=== PATIENT | male | born 1940 | race Caucasian/White ===

== ENCOUNTER → 2016-11-02 | Outpatient (CLI) | payer OTHER, BC ==
[~2016-11-02] MED LIST: ANTIVERT25 MG PO; ASPIRIN325 PO; ATENOLOL 100MG100 M2 PO; B12INJ SUBQ; BENICAR HCT 401 EACH PO; CENTRUM SILVER1 EAC2 PO; CIPRO500 MG PO; CITALOPRAM HBR40 MG PO; COUMADIN 5 MG TA5 M1 PO; ENOXAPARIN150 MG/11 SUBQ; FISH OIL 1,0001 EAC5 PO; FISH OIL 1,001000 M2 PO; FLOMAX0.4 MG PO; NEXIUM40 MG PO; OMEPRAZOLE40 MG PO; REMERON15 MG PO; TYLENOL325 MG PO; ZOCOR40 MG PO
== END ==
LOC: RAD 09:46
DX: R07.9 Chest pain, unspecified (principal); R06.02 Shortness of breath

== ENCOUNTER → 2016-11-19 | Outpatient (CLI) | payer OTHER, BC | LOC: CAT 11:04 | DX: J96.11 Chronic respiratory failure with hypoxia (principal); R06.02 Shortness of breath; R59.1 Generalized enlarged lymph nodes ==

== ENCOUNTER → 2017-03-15 | Outpatient (CLI) | payer OTHER, BC | LOC: PUL 09:26 → CAT 10:02 → EDSTATUS 13:01 | DX: J84.9 Interstitial pulmonary disease, unspecified (principal); J43.8 Other emphysema ==

== ENCOUNTER → 2017-04-26 | Outpatient (CLI) | payer OTHER, BC ==
--- NOTE | ~2017-04-26 | O ---
[facility] [place] [address] OPERATIVE REPORT Name: CLARISSA MARTINEZ Jackelyn Room #: [facility]#: [id number] Admission: 04/26/17 Attend Phys: Cameron Heath MD Discharge: Date of : 42 Report #: [id number] THIS REPORT FOR: //name// CC: CIPRIANO Heath DATE OF SERVICE: 04/26/2017 CLINICAL HISTORY: A 77-year-old white male with interstitial lung disease. A bronchoscopy was performed for bronchoalveolar lavage. DESCRIPTION OF PROCEDURE: Following obtaining consent, and risks and benefits been explained to the patient which include infection, bleeding and pneumothorax, procedure was performed in the bronchoscopy suite. The patient was given aerosolized lidocaine at 4%. Topical lidocaine at 2% and 1% were used for the upper airways. He was also given total of 3 mg of Versed, 100 mcg of fentanyl for sedation. A flexible fiberoptic bronchoscope was then introduced to the left naris without difficulty. The epiglottis was normal. Vocal cords were normal. Trachea showed mild tracheomalacia. Otherwise, mucosa was normal. Nayana was normal. Right main stem bronchus, right upper lobe, right middle lobe and right lower lobe were unremarkable. Left main stem bronchus, left upper lobe and left lower lobe were unremarkable. Mild clear secretions were seen in both airways. Bronchoalveolar lavage was performed at the proximal anterior segment of the left lower lobe. Three aliquots of 20 mL of normal saline was used. We had approximately 20 mL in return. The patient tolerated the procedure well, no complications. His saturation did decrease following the bronchial lavage. O2 has been increased with saturation improving to 93%. The bronchoalveolar lavage specimen will be sent for microbiologic and cytologic evaluation. The patient will be followed in the office in approximately 1 on 2 weeks. The findings were discussed with the patient's significant other. <ELECTRONICALLY SIGNED> By: Cameron Heath MD 04/28/17 1233 0900 0947 Cameron Heath MD /nt
--- NOTE | ~2017-04-26 | CNG ---
[facility] [place] [address] CYTO-NONGYN REPORT PROCEDURE Name: CLARISSA VILLALPANDO Room #: REG [facility] MichelPiter#: [id number] Admission: 04/26/17 Date of : 42 Discharge: Report #: [id number] Path Case #: [id number] CYTOPATHOLOGY REPORT COLLECTION DATE: 04/26/2017 RECEIVED DATE: 04/26/2017 SUBMITTING PHYS: Dr. Cameron Heath OTHER PHYS: Dr.Mark Amado CLINICAL HISTORY: Abnormal CT. SPECIMEN(S) RECEIVED: A.Bronchoalveolar lavage, LLL * * * * * * * * * * * * FINAL DIAGNOSIS: A. Bronchoalveolar lavage, LLL: - No malignant epithelial cells identified. - Bronchial epithelial cells and abundant alveolar macrophages present amongst acute and chronic inflammatory cells and multinucleated giant cell histiocytes with background mucoid debris. PATHOLOGIST: Amairani Polk M.D. REPORT ELECTRONICALLY SIGNED BY: Amairani Polk M.D. DATE/TIME: 04/27/2017 11:35 * * * * * * * * * * * * GROSS PATHOLOGY: A. Bronchoalveolar lavage, LLL: The specimen is submitted unfixed, labeled "Clarissa Villalpando". Received by the Cytology Department is 15 mL of cloudy fluid. One ThinPrep slide was prepared. (clt 04.26.2017) MACHINE SWEEPER BRUSH MAKER(S): RIA Singh([facility]) INITIAL CPT CODE(S): A; 66495 Professional services performed by [facility] at [facility] [address], [place] [address] Technical services performed by [facility] at [address] [place] [address], [facility] [address], [place] [address]. CC: [place] [facility] [address] [place] [address], [facility] [address] [place] [address] CYTO-NONGYN REPORT PROCEDURE Name: CLARISSA VILLALPANDO Room #: REG MAYA Rosales#: [id number] Admission: 04/26/17 Date of : 42 Discharge: Report #: [id number] Path Case #: [id number] PHONE: [phone] DIRECTOR: Benedicto Cortez M.D. * * * END OF REPORT * * *
== END ==
LOC: CATH 06:48
DX: J84.9 Interstitial pulmonary disease, unspecified (principal)

== ENCOUNTER → 2017-10-31 | Outpatient (CLI) | payer OTHER ==
[~2017-10-31] MED LIST changes: +AVALIDE 300-121 EACH PO; +MYCOPHENOLATE500 MG PO
== END ==
LOC: RAD 10:34 → LAB 10:34
DX: J84.9 Interstitial pulmonary disease, unspecified (principal); I26.99 Other pulmonary embolism without acute cor pulmonale

== ENCOUNTER 2017-11-30 17:25 | Emergency (ER) | payer OTHER ==
[~2017-11-30] VITALS: Ht 180.3 cm; Wt 111.1 kg
--- NOTE | ~2017-11-30 | EKG ---
[address] [address] ELECTROCARDIOGRAM REPORT Name: CLARISSA MARTINEZ [id number] Admission: 11/30/17 Attend Phys: Discharge: 11/30/17 Date of : 42 Report #: [id number] THIS REPORT FOR: //name// [facility] ED Test Date: 2017-11-30 Test Time: 17:46:56 Pat Name: CLARISSA PACHECOER Department: Room: Gender: M Histologist: GRAZYNA : 1940 Requested By: Janette Lopez Order Number: [id number] MD: Fausto Matias Measurements Intervals [place] Rate: 90 P: 4 [place]: 276 QRS: 5 QRSD: 99 T: 19 QT: 356 QTc: 436 Interpretive Statements Sinus rhythm Prolonged [place] interval Compared to ECG 06/04/2016 19:42:03 Electronically Signed On 12-01-2017 8:07:10 CDT by Fausto Matias [email or web address] <ELECTRONICALLY SIGNED> By: Fausto Matias MD 12/01/17 0807 1746 174 Fausto Matias MD /NELSON
[~2017-11-30 17:25] MED LIST changes: -AVALIDE 300-121 EACH PO; -MYCOPHENOLATE500 MG PO
[2017-11-30 17:53] LABS: HEMATOCRIT 49.3 % (42.0-52.0); HEMOGLOBIN 16.3 gm/dL (14.0-18.0); MCH 24.6 pg (26.0-34.0); MCV 74.5 fL (80.0-100.0); PLATELET COUNT 493 thou/uL (150-400); RBC 6.62 mil/uL (4.50-6.00); RDW 18.7 % (10.5-14.5); WBC 14.3 thou/uL (4.0-11.0)
[2017-11-30 17:58] LABS: ANION GAP 11 mmol/L (7-16); BUN 9 mg/dL (7-18); CALCIUM 9.2 mg/dL (8.5-10.1); CHLORIDE 91 mmol/L (98-107); CO2 25 mmol/L (21-32); CREATININE 1.3 mg/dL (0.7-1.3); GLUCOSE 96 mg/dL (74-106); POTASSIUM 3.4 mmol/L (3.5-5.1); SODIUM 127 mmol/L (136-145)
[2017-11-30 18:05] LABS: INR 1.3; PROTIME 13.7 Seconds (9.3-11.4)
[2017-11-30 18:06] LABS: ALBUMIN 4.4 g/dL (3.4-5.0); SGOT 25 U/L (15-37); SGPT 36 U/L (30-65); TOTAL PROTEIN 8.1 g/dL (6.4-8.2); TROPONIN-I < 0.04 ng/mL (<0.06)
[2017-11-30 18:31] LABS: URINE BILIRUBIN NEGATIVE (Negative); URINE BLOOD NEGATIVE (Negative); URINE CLARITY CLEAR; URINE COLOR YELLOW; URINE GLUCOSE-RANDOM* NEGATIVE (Negative); URINE KETONES TRACE (Negative); URINE LEUKOCYTES NEGATIVE (Negative); URINE NITRITE NEGATIVE (Negative); URINE PROTEIN (DIPSTICK) NEGATIVE (Negative); URINE UROBILINOGEN 0.2 E.U./dl (0.2-1.0)
[2017-11-30 18:40] LABS: ABSOLUTE NEUTROPHILS 11.9 thou/uL (1.4-8.2); METAMYELOCYTES 3 %
[2017-11-30 18:41] LABS: ANISOCYTOSIS 2+
[2017-11-30 18:42] LABS: LARGE PLATELETS SEVERAL; OVALOCYTES 1+
[2017-11-30] MEDS ORDERED: AVALIDE 300-121 EACH PO (18:53)
[2017-11-30] MEDS ORDERED: MYCOPHENOLATE500 MG PO (18:54)
[2017-11-30 19:34] LABS: BE(vivo) -5.4 mmol/L (-2 to +3); HCO3 18.8 mmol/L (22.0-26.0); PCO2 33.3 mmHg (35.0-45.0); PO2 60.7 mmHg (80.0-100.0); sO2 90.9 % (92.0-98.0)
== END 2017-11-30 20:19 | disposition home or self-care (01) ==
LOC: ER 17:25
PROVIDERS: Physician Assistant
DX: R55 Syncope and collapse (principal); E87.6 Hypokalemia; F10.10 Alcohol abuse, uncomplicated; E87.1 Hypo-osmolality and hyponatremia; D72.829 Elevated white blood cell count, unspecified; I10 Essential (primary) hypertension; E78.00 Pure hypercholesterolemia, unspecified; Z88.0 Allergy status to penicillin

== ENCOUNTER → 2018-01-12 | Outpatient (CLI) | payer OTHER ==
[~2018-01-12] MED LIST changes: +AVALIDE 300-121 EACH PO; +MYCOPHENOLATE500 MG PO
--- NOTE | ~2018-01-12 | 2DMMODE ---
[facility] [place] [address] 2 D/M-MODE ECHOCARDIOGRAM Name: CLARISSA MARTINEZ Room #: REG [facility]#: [id number] Admission: 01/12/18 Attend Phys: Anish Rodrigues MD Discharge: Date of : 42 Date of Service: 01/12/18 1118 Report #: [id number] THIS REPORT FOR: //name// APPROVED REPORT Study performed: 01/12/2018 10:29:16 EXAM: Comprehensive 2D, Doppler, and color-flow Echocardiogram Patient Location: Out-Patient Status: routine BSA: 2.32 HR: 83 bpm BP: 155/96 mmHg Rhythm: NSR Other Information Study Quality: Good Indications CAD. Hx: Stents, CVA, pulmonary embolism, HTN, HLP 2D Dimensions RVDd: 57.96 mm LVEF(%): 70.30 (>50%) IVSd: 12.90 (7-11mm) LVOT Diam: 23.11 (18-24mm) LVDd: 46.88 mm PWd: 12.68 (7-11mm) Ascending Ao: 36.07 (22-36mm) LVDs: 28.25 (25-40mm) Aortic Root: 39.48 mm Vidal's LVEF: 70.30 % Volumes Left Atrial Volume (Systole) Single Plane 4CH: 58.92 mL Single Plane 2CH: 73.44 mL LA ESV Index: 30.00 mL/m2 Aortic Valve AoV Peak Joshua.: 1.25 m/s AO Peak Gr.: 6.24 mmHg LVOT Max P.58 mmHg LVOT Max V: 1.07 m/s MERYL Vmax: 3.59 cm2 Mitral Valve E/A Ratio: 0.7 MV Decel. Time: 261.45 ms [facility] [place] [address] 2 D/M-MODE ECHOCARDIOGRAM Name: CLARISSA MARTINEZ Room #: [facility]#: [id number] Admission: 01/12/18 Attend Phys: Anish Rodriguse MD Discharge: Date of : 42 Date of Service: 01/12/18 1118 Report #: [id number] MV E Max Joshua.: 0.77 m/s MV A Joshua.: 1.14 m/s MV PHT: 75.82 ms IVRT: 106.11 ms Pulmonary Valve PV Peak Joshua.: 0.72 m/s PV Peak Gr.: 2.09 mmHg Tricuspid Valve TR Peak Joshua.: 4.14 m/s RAP Estimate: 10.00 mmHg TR Peak Gr.: 68.47 mmHg PA Pressure: 78.00 mmHg Left Ventricle The left ventricle is normal size. There is normal LV segmental wall motion. Mild concentric left ventricular hypertrophy. Left ventricular systolic function is normal. LVEF is 55-60%. Mild diastolic dysfunction is present (impaired relaxation pattern). Right Ventricle Right ventricle is dilated. Right ventricle is mildly hypokinetic. Atria Left atrium is at the upper limits of normal. Right atrium is severely dilated. Aortic Valve Aortic valve is mildly calcified. No aortic regurgitation is present. There is no aortic valvular stenosis. Mitral Valve Mitral valve leaflets are mildly thickened. Mild mitral regurgitation. Tricuspid Valve The tricuspid valve is normal in structure. Moderate tricuspid regurgitation. Severe pulmonary hypertension with an estimated PAP of 75-80mmHg. Pulmonic Valve Pulmonic valve is not well visualized. Trace pulmonic regurgitation. Great Vessels [facility] [address] [address] 2 D/M-MODE ECHOCARDIOGRAM Name: MICHELLECLARISSA L Room #: [facility]#: [id number] Admission: 01/12/18 Attend Phys: Anish Rodrigues MD Discharge: Date of : 42 Date of Service: 01/12/18 1118 Report #: [id number] Aortic root is dilated at 4.0cm. The ascending aorta is normal in size. IVC is dilated and collapses <50% with inspiration. Pericardium There is no pericardial effusion. <Conclusion> The left ventricle is normal size. Mild concentric left ventricular hypertrophy. Left ventricular systolic function is normal. Mild diastolic dysfunction is present (impaired relaxation pattern). Right ventricle is dilated. Right atrium is severely dilated. Aortic valve is mildly calcified. Mild mitral regurgitation. Moderate tricuspid regurgitation. Severe pulmonary hypertension with an estimated PAP of 75-80mmHg. <ELECTRONICALLY SIGNED> By: Anish Rodrigues MD 01/12/18 1118 1118 1118 Anish Rodrigues MD /INF
== END ==
LOC: CV 06:54
DX: I25.10 Atherosclerotic heart disease of native coronary artery without angina pectoris (principal); I51.7 Cardiomegaly; I27.20 Pulmonary hypertension, unspecified; I08.1 Rheumatic disorders of both mitral and tricuspid valves; E78.5 Hyperlipidemia, unspecified

== ENCOUNTER → 2018-06-29 | Outpatient (CLI) | payer OTHER ==
--- NOTE | ~2018-06-29 | PFR/MVV ---
[facility] [place] [address] PULMONARY FUNCTION MVV/REPORT Name: CLARISSA MARTINEZ Room #: [facility]#: [id number] Admission: 06/29/18 Attend Phys: Physician not on staff Discharge: Date of : 42 Report #: [id number] THIS REPORT FOR: //name// >> SPIROMETRY: (BTPS) Height: in cm Weight: lbs kg Exam Date: PRE-RX POST-RX PRED BEST %PRED BEST %PRED %CHG FVC LITERS . . . . . . FEV1 LITERS . . . . . . FEV1/FVC % . . . . . . CUQ08-49% L/Sec . . . . . . PEF L/SEC . . . . . . FEF50/FIF50 UNITLESS . . . . . . MVV L/Min . . . f 1/Min . . . >> LUNG VOLUMES: (BTPS) PRE-RX POST-RX PRED AVG %PRED AVG %PRED %CHG VC Liters . . . . . . TLC Liters . . . . . . RV Liters . . . . . . RV/TLC % . . . . . . FRC PL Liters . . . . . . FRC N2 Liters . . . . . . ERV Liters . . . . . . IC Liters . . . . . . >> DIFFUSION: DLCO ml/Min/mmHg . . . . . . DL Sarah ml/Min/mmHg . . . . . . DLCO/VA ml/Min/mmHg . . . . . . VA Liters . . . . . . COMMENTS: COMMENTS: >> RESISTANCE: [facility] [address] [place] [address] PULMONARY FUNCTION MVV/REPORT Name: CLARISSA MARTINEZ Room #: [facility] BlountPiterRogerPiter#: [id number] Admission: 06/29/18 Attend Phys: Physician not on staff Discharge: Date of : 42 Report #: [id number] PRE-RX PRED AVG %PRED Raw Total cmH20/L/Sec . . . Raw Insp cmH20/L/Sec . . . Raw Exp cmH20/L/Sec . . . Raw cmH20/L/Sec . . . Gaw L/Sec/cmH20 . . . sRaw cmH20 Sec . . . sGaw l/cmH20 Sec . . . Vtq Liters . . . # = OUTSIDE 95% CONFIDENCE INTERVAL CALIBRATION: PRED: 3.00 ACTUAL: EXP 3.01 INSP 3.02 IPS-OL10-06 [facility]- N-1804-4 >> INTERPRETATION/IMPRESSION: CC: CIPRIANO Amado Physician staff DATE OF SERVICE: 06/29/2018 FEV1 is 2.82 liters (88%). FVC is 4.27 liters (104%). FEV1/FVC ratio is 66%. Postbronchodilator therapy is with no significant response. Total lung capacity 6.66 liters (100%). RV is 2.39 liters (88%). Diffusing capacity is 5.8 (25%). IMPRESSION: Pulmonary function studies are consistent with a mild obstructive airflow defect, with very severe diffusing capacity limitation. By: Mickey Murry MD /nt
--- NOTE | ~2018-06-29 | PFR/MVV ---
[facility] [place] [address] PULMONARY FUNCTION MVV/REPORT Name: CLARISSA MARTINEZ Room #: [facility]#: [id number] Admission: 06/29/18 Attend Phys: Physician not on staff Discharge: Date of : 42 Report #: [id number] THIS REPORT FOR: //name// COPIES FOR: AGE: 78 SEX/RACE: M/C >> SPIROMETRY: (BTPS) Height: 71.0 in cm Weight: 233 lbs kg Exam Date: 06/29/18 PRE-RX POST-RX PRED BEST %PRED BEST %PRED %CHG FVC LITERS . 4.12 . 4.27 . 104 . 4.26 . 103 . -0 FEV1 LITERS . 3.21 . 2.82 . 88 . 2.85 . 89 . 1 FEV1/FVC % . 77 . 66 . 86 . 67 . 87 . 1 WVH35-87% L/Sec . 3.11 . 1.28 . 41 . 1.37 . 44 . 6 PEF L/SEC . 8.26 . 7.95 . 86 . 7.92 . 96 . -0 FEF50/FIF50 UNITLESS . <1.00 . 0.99 . . 1.07 . . 8 MVV L/Min . 122 . 86 . 70 f 1/Min . . 125 . >> LUNG VOLUMES: (BTPS) PRE-RX POST-RX PRED AVG %PRED AVG %PRED %CHG VC Liters . 4.12 . 4.27 . 104 . . . TLC Liters . 6.64 . 6.66 . 100 . . . RV Liters . 2.73 . 2.39 . 88 . . . RV/TLC % . 43 . 36 . [address] . . . [address] Liters . 3.49 . 4.11 . 118 . . . FRC N2 Liters . 3.49 . . . . . ERV Liters . . 1.72 . . . . IC Liters . . 2.35 . . . . >> DIFFUSION: DLCO ml/Min/mmHg . 23.3 . 5.8 . 25 . . . DL Sarah ml/Min/mmHg . 23.3 . 5.8 . 25 . . . DLCO/VA ml/Min/mmHg . 3.41 . 1.30 . 38 . . . VA Liters . . 4.48 . . . . [address] [address] PULMONARY FUNCTION MVV/REPORT Name: MICHELLECLARISSA Room #: [facility]#: [id number] Admission: 06/29/18 Attend Phys: Physician not on staff Discharge: Date of : 42 Report #: [id number] COMMENTS: COMMENTS: >> RESISTANCE: PRE-RX PRED AVG %PRED Raw Total cmH20/L/Sec . . 4.08 . Raw Insp cmH20/L/Sec . . 4.71 . Raw Exp cmH20/L/Sec . . 3.47 . Raw cmH20/L/Sec . 1.29 . 2.09 . 161 Gaw L/Sec/cmH20 . 0.837 . 0.479 . 57 sRaw cmH20 Sec . 4.51 . 7.58 . 168 sGaw l/cmH20 Sec . 0.222 . 0.132 . 60 Vtq Liters . . 3.63 . # = OUTSIDE 95% CONFIDENCE INTERVAL CALIBRATION: PRED: 3.00 ACTUAL: EXP 3.01 INSP 3.02 [facility]-OL10-06 [facility]-05 N-1804-4 >> INTERPRETATION/IMPRESSION: CC: CIPRIANO Amado Physician staff DATE OF SERVICE: 06/29/2018 Spirometry: FEV1 is 2.82 liters (88%), FVC 4.27 liters (104%). FEV1/FVC ratio 66%. Postbronchodilator therapy with no significant response. Total lung capacity 6.66 liters (100%). RV is 2.39 liters (88%). IC/ERV ratio is 2.35-1.72. Diffusing capacity is 5.8 ml/MMHG/minute (25%). Pulmonary function studies are consistent with a mild obstructive airflow defect with no significant response to bronchodilator therapy. Total lung capacity is normal. Diffusing capacity is severely decreased. By: Mickey Murry MD /nt
== END ==
LOC: PUL 10:44
DX: J84.9 Interstitial pulmonary disease, unspecified (principal)

== ENCOUNTER → 2018-09-25 | Outpatient (CLI) | payer OTHER ==
--- NOTE | 2018-09-25 10:02 | 2DMMODE ---
[facility] [place] [address] 2 D/M-MODE ECHOCARDIOGRAM Name: CLARISSA MARTINEZ Room #: REG [facility]#: [id number] Admission: 09/25/18 Attend Phys: Anish Rodrigues MD Discharge: Date of : 42 Date of Service: 09/25/18 1002 Report #: [id number] THIS REPORT FOR: //name// APPROVED REPORT Study performed: 09/25/2018 09:08:58 EXAM: Comprehensive 2D, Doppler, and color-flow Echocardiogram Patient Location: Out-Patient Status: routine BSA: 2.28 HR: 76 bpm BP: 124/82 mmHg Rhythm: NSR Other Information Study Quality: Good Indications Short of breath. Hx: CAD, stents, pulmonary embolism, CVA, HTN, HLP. 2D Dimensions RVDd: 55.48 mm IVSd: 10.40 (7-11mm) LVOT Diam: 22.47 (18-24mm) LVDd: 45.92 mm PWd: 11.84 (7-11mm) Ascending Ao: 36.58 (22-36mm) LVDs: 31.33 (25-40mm) Aortic Root: 41.17 mm Volumes Left Atrial Volume (Systole) Single Plane 4CH: 50.82 mL Single Plane 2CH: 69.41 mL LA ESV Index: 28.00 mL/m2 Aortic Valve AoV Peak Joshua.: 1.13 m/s AO Peak Gr.: 5.12 mmHg LVOT Max P.87 mmHg LVOT Max V: 0.98 m/s MERYL Vmax: 3.45 cm2 Mitral Valve E/A Ratio: 0.8 MV Decel. Time: 112.00 ms [facility] [address] [place] [address] 2 D/M-MODE ECHOCARDIOGRAM Name: MICHELLECLARISSA ORTIZ Room #: [facility]#: [id number] Admission: 09/25/18 Attend Phys: Anish Rodrigues MD Discharge: Date of : 42 Date of Service: 09/25/18 1002 Report #: [id number] MV E Max Joshua.: 0.77 m/s MV A Joshua.: 0.93 m/s MV PHT: 32.48 ms IVRT: 93.43 ms Pulmonary Valve PV Peak Joshua.: 0.63 m/s PV Peak Gr.: 1.57 mmHg Pulmonary Vein P Vein S: 0.69 m/s P Vein A: 0.36 m/s P Vein D: 0.31 m/s P Vein A Dur.: 129.2 msec P Vein S/D Ratio: 2.23 Tricuspid Valve TR Peak Joshua.: 4.07 m/s RAP Estimate: 15.00 mmHg TR Peak Gr.: 66.41 mmHg PA Pressure: 81.00 mmHg Left Ventricle The left ventricle is normal size. There is normal LV segmental wall motion. There is normal left ventricular wall thickness. Left ventricular systolic function is normal. LVEF is 55%. Mild diastolic dysfunction is present (impaired relaxation pattern). Right Ventricle Right ventricle is severely dilated. Right ventricle is mildly hypokinetic. Atria The left atrium size is normal. Right atrium is severely dilated. Aortic Valve Aortic valve is mildly calcified. No aortic regurgitation is present. There is no aortic valvular stenosis. Mitral Valve Mitral valve leaflets are mildly thickened. There is no mitral valve regurgitation noted. Tricuspid Valve The tricuspid valve is normal in structure. Moderate tricuspid regurgitation. Estimated PAP is 75-80mmHg. Pulmonic Valve The pulmonary valve is normal in structure. Trace pulmonic [address] [address] 2 D/M-MODE ECHOCARDIOGRAM Name: CLARISSA MARTINEZ Room #: REG [facility]#: [id number] Admission: 09/25/18 Attend Phys: Anish Rodrigues MD Discharge: Date of : 42 Date of Service: 09/25/18 1002 Report #: [id number] regurgitation. Great Vessels Aortic root is mildly dilated at 4.1cm. The ascending aorta is normal in size. IVC is dilated and collapses <50% with inspiration. Pericardium There is no pericardial effusion. <Conclusion> The left ventricle is normal size. There is normal left ventricular wall thickness. Left ventricular systolic function is normal. Mild diastolic dysfunction is present (impaired relaxation pattern). Right ventricle is severely dilated. Right ventricle is mildly hypokinetic. The left atrium size is normal. Right atrium is severely dilated. Aortic valve is mildly calcified. There is no mitral valve regurgitation noted. Moderate tricuspid regurgitation. Estimated PAP is 75-80mmHg. <ELECTRONICALLY SIGNED> By: Anish Rodrigues MD 09/25/18 1002 1002 1002 Anish Rodrigues MD /INF
== END ==
LOC: CV 06:21 → ULTRA 08:49 → CV 13:25
DX: I07.1 Rheumatic tricuspid insufficiency (principal); I34.8 Other nonrheumatic mitral valve disorders; M79.89 Other specified soft tissue disorders; I35.8 Other nonrheumatic aortic valve disorders; R06.00 Dyspnea, unspecified; R60.9 Edema, unspecified; I25.10 Atherosclerotic heart disease of native coronary artery without angina pectoris; I10 Essential (primary) hypertension; E78.5 Hyperlipidemia, unspecified

== ENCOUNTER → 2018-10-02 | Outpatient (CLI) | payer OTHER | LOC: RAD 10:39 | DX: I51.7 Cardiomegaly (principal); J84.9 Interstitial pulmonary disease, unspecified; I27.20 Pulmonary hypertension, unspecified; G89.29 Other chronic pain ==

== ENCOUNTER → 2018-10-09 | Outpatient (CLI) | payer OTHER ==
[~2018-10-09] VITALS: Ht 180.3 cm; Wt 106.6 kg
[~2018-10-09] MED LIST changes: +KLOR-CON20 ME1 PO; +LASIX 40 MG TAB40 M2 PO; +PREDNISONE 20 M20 MG PO
[2018-10-09 08:30] LABS: HEMATOCRIT 55.4 % (42.0-52.0); HEMOGLOBIN 17.8 gm/dL (14.0-18.0); MCH 25.2 pg (26.0-34.0); MCV 78.7 fL (80.0-100.0); WBC 21.2 thou/uL (4.0-11.0)
[2018-10-09 08:36] LABS: RBC 7.04 mil/uL (4.50-6.00)
[2018-10-09 08:43] LABS: CALCIUM 9.6 mg/dL (8.5-10.1); CREATININE 1.2 mg/dL (0.7-1.3); INR 1.3; POTASSIUM 3.6 mmol/L (3.5-5.1); PROTIME 13.1 Seconds (9.3-11.4)
[2018-10-09 08:47] VITALS: BP 142/96
--- NOTE | 2018-10-09 09:28 | EKG ---
[place] [address] [facility] [employer] [place] [address] ELECTROCARDIOGRAM REPORT Name: MICHELLECLARISSA ORTIZ Room #: [facility]#: [id number] ������������������ Admission: 10/09/18 ������������������ Attend Phys: Anish Rodrigues MD Discharge: ������������������ Date of : 42 Report #: [id number] ����������������������������������������������������������������� [id number] THIS REPORT FOR: //name// [facility] Test Date: 2018-10-09 Test Time: 08:40:22 Pat Name: CLARISSA MARTINEZ Department: Room: Gender: Willow Analyst: Humaira PIÑA : 1940 Requested By: Anish Rodrigues Order Number: [id number] MD: Rolan Zavaleta Measurements Intervals [place] Rate: 81 P: -6 [place]: 196 QRS: 50 QRSD: 100 T: -16 QT: 374 QTc: 434 Interpretive Statements Sinus rhythm Abnormal R-wave progression, late transition Abnormal T, consider ischemia, anterior leads Compared to ECG 11/30/2017 17:46:56 T-wave abnormality now present First degree AV block no longer present Electronically Signed On 10-09-2018 9:28:09 ELECTRICAL LINE MECHANIC by Rolan Zavaleta [email or web address] ��������������������������������������������� <ELECTRONICALLY SIGNED> ���������������������������������������� By: Rolan Zavaleta MD, [facility] ��������������������������������������������� 10/09/18 0928 0840 0840 Rolan Zavaleta MD, [facility] /EPI
[2018-10-09 10:06] LABS: BE(vivo) -0.8 mmol/L (-2 to +3); BE(vivo) -2.4 mmol/L (-2 to +3); HCO3 22.5 mmol/L (22.0-26.0); HCO3 23.4 mmol/L (22.0-26.0); PCO2 37.7 mmHg (35.0-45.0); PCO2 39.4 mmHg (35.0-45.0); PO2 57.1 mmHg (80.0-100.0); pH 7.374 (7.360-7.450); pH 7.411 (7.360-7.450); sO2 65.5 % (92.0-98.0); sO2 90.2 % (92.0-98.0)
[2018-10-09 10:07] LABS: PO2 34.8 mmHg (80.0-100.0)
--- NOTE | 2018-10-09 17:29 | CATHLAB ---
[facility] [place] [address] INVASIVE PROCEDURE REPORT Name: CLARISSA MARTINEZ Jackelyn Room #: REG [facility]#: [id number] ������������� Admission: 10/09/18 ������������� Attend Phys: Anish Rodrigues MD Discharge: ��� ������������� ��� Date of : 42 Date of Service: 10/09/18 1728 �� Report #: [id number] �������� ��������������������������������������������[id number] THIS REPORT FOR: //name// APPROVED REPORT Study performed: 10/09/2018 09:09:01 Patient Details The patient is a 78 year-old male Event Personnel Anish Rodrigues Clay Grinder, Mer SolanoR, SAMPLE WEAVER Monitor, Rashmi Lopez RN RN, Asher Ignacio FERGUSON, CHRISTEENA RN brick setter operator Performed Art Access - R femoral artery* Raman Access - R femoral vein Right and Left Heart Cath w/or w/o Coronarie [id number] [facility] Hemostasis with Manual pressure Indication Dyspnea Risk Factors Chronic Lung DiseaseHypercholesterolemiaPhysical Activity, Coronary Artery DiseaseHypertension Previous Procedures/Diagnoses Previous PCI Procedure Narrative The Right Groin^ was infiltrated with subcutaneous anesthesia. A Right Heart Catheterization was performed with a 7 Fr. Modale-Chelsey catheter and pressure were recorded. Cardiac outputs were obtained by the Micky method. A PINNACLE 4FR Sheath #[id number] sheath was inserted into the RFA^. Coronary angiography was performed using coronary diagnostic catheters. The right coronary system was accessed and visualized with a JR4 catheter. The left coronary system was accessed and visualized with a JL4 catheter. The left ventricle was accessed and visualized with a ANGLE PIG catheter. Left ventriculogram was performed in 30 degree projection. Hemostasis was obtained with manual pressure following sheath removal without any complications. The patient tolerated the procedure well and there were no complications associated with the procedure. There was no hematoma. [facility] [place] [address] INVASIVE PROCEDURE REPORT Name: CLARISSA MARTINEZ Room #: REG [facility]#: [id number] ������������� Admission: 10/09/18 ������������� Attend Phys: Anish Rodrigues MD Discharge: ��� ������������� ��� Date of : 42 Date of Service: 10/09/18 1728 �� Report #: [id number] �������� ��������������������������������������������[id number] Fluoro Time: 10.30 minutes Dose: DAP 29274.10 cGycm2 914 mGy Contrast Type and Amount: Visipaque 50 ml Diagnostic Cath Left Main This is a large caliber vessel, patent with no flow-limiting lesions. LAD There is a stent in the proximal segment, with mild to moderate diffuse restenosis, 30-40%. There is a stent in the midsegment, patent with mild restenosis. Diagonal 1 This is a small to moderate size caliber vessel with a severe, ostial stenosis of 70%. Recommend medical therapy. Diagonal 2 This is a moderate size caliber vessel, branching off from the mid segment of the LAD. There is a patent stent in the ostium of this vessel, with minimal restenosis. Circumflex There is a stent in the proximal segment, with moderate restenosis, supplies a small OM vessel. Right Coronary This is a large caliber vessel, dominant as it supplies a PDA and 3 RPL branches. There is only mild disease in the mid segment of the RCA. The PDA and all 3 RPL branches are of moderate size caliber, patent with minimal disease. The RPL branches extend up into the inferolateral region. Left Ventriculography The left ventricle is normal in size with normal contractility. The left ventricular ejection fraction is estimated to be >55%. Hemodynamics The right atrial mean pressure is 24 mmHg. The right ventricular pressure is 92/20 mmHg. The pulmonary artery pressure is 95/47 mmHg with a mean of 64 mmHg. The aortic pressure is 136/85 mmHg with a mean of 107 mmHg. The left ventricular pressure is 135/14 mmHg with a mean of mmHg. The left ventricular end diastolic pressure is 30 mmHg. PaO2 saturation is 66.20 %. Arterial saturation is 88.50 %. The cardiac output using the Micky method is 4.91 L/min. The cardiac index using the Micky method is 2.18 L/min/m2. Conclusion 1. Patent stents in the LAD and left circumflex arteries, with mild to moderate restenosis. 2. Borderline stenosis at the ostium of a small to moderate-sized first diagonal artery, recommend medical therapy. 3. Large RCA supplying multiple moderate size caliber branches, patent with minimal disease. [facility] [address] [place] [address] INVASIVE PROCEDURE REPORT Name: MICHELLECLARISSA Room #: REG Bobby#: [id number] ������������� Admission: 10/09/18 ������������� Attend Phys: Anish Rodrigues MD Discharge: ��� ������������� ��� Date of : 42 Date of Service: 10/09/181727 �� Report #: [id number] �������� ��������������������������������������������[id number] 4. Normal LV systolic function. LVEDP of 24 mmHg, no gradient across the LVOT. 5. Right-sided pressures as described above, severe pulmonary hypertension. ��������������������������������������������� <ELECTRONICALLY SIGNED> ���������������������������������������� By: Anish Rodrigues MD ��������������������������������������������� 10/09/181727 27 27 Anish Rodrigues MD /INF
== END | disposition home or self-care (01) ==
LOC: CATH 07:22
PROVIDERS: Internal Medicine Cardiovascular Disease
DX: I25.10 Atherosclerotic heart disease of native coronary artery without angina pectoris (principal); I10 Essential (primary) hypertension; J44.9 Chronic obstructive pulmonary disease, unspecified; E66.09 Other obesity due to excess calories; Z79.899 Other long term (current) drug therapy; Z98.890 Other specified postprocedural states; Z95.5 Presence of coronary angioplasty implant and graft; Z90.49 Acquired absence of other specified parts of digestive tract; Z86.73 Personal history of transient ischemic attack (TIA), and cerebral infarction without residual deficits; Z87.891 Personal history of nicotine dependence; Z86.711 Personal history of pulmonary embolism; Z79.01 Long term (current) use of anticoagulants; Z88.0 Allergy status to penicillin

== ENCOUNTER 2018-10-30 11:33 | Inpatient (IN) | payer OTHER ==
[~2018-10-30] VITALS: Ht 180.3 cm; Wt 106.8 kg
--- NOTE | ~2018-10-30 | H ---
[facility] [place] [address] HISTORY AND PHYSICAL Name: CLARISSA MARTINEZ Room #: 209-P ADM IN M.R.#: [id number] Admission: 10/30/18 ������������������ Attend Phys: Cipriano Amado MD Discharge: ������������������ Date of : 41 Report #: [id number] THIS REPORT FOR: //name// CC: Dr. Macedo Rare Lung Diseae [facility], [facility] CIPRIANO Amado MD DATE OF SERVICE: 10/30/2018 CHIEF COMPLAINT: Acute on chronic respiratory failure with community-acquired pneumonia in an immunocompromised patient. HISTORY OF PRESENT ILLNESS: The patient is a 78-year-old male with extensive progressive pulmonary fibrosis who has had more trouble breathing and increased oxygen needs since 09/15 this year. He is followed by Dr. Cameron Heath of the pulmonary clinic here at [facility] and Dr. Macedo of the Rare Pulmonary Disease Clinic at the [facility]. Because of his increasing problems, he was on campus to have a spirometry and pulmonary function tests at the hospital today. As he was being evaluated for the tests, his oxygen saturation was 72% on 4 liters by nasal cannula. He was brought to the Emergency Room where it took 40-50% FiO2 by high flow nasal cannula in order to achieve adequate oxygenation. At baseline, he is on 3 liters of nasal cannula oxygen while sitting and 17 liters while moving around. Over the last several weeks, he has been up to 7 liters while sitting. He was found to have pneumonia and required admission. He has been followed at the interstitial lung clinic at [facility] for some time. He has been on CellCept/mycophenolate 2000 mg a day initially several years ago and has had that dose decreased to 500 mg twice daily. He is on prednisone 20 mg every other day. He has COPD, hypertension for more than 10 years and four heart stents placed at [facility] in [address]. [address]. Rodrigues is his deposition operator. There was a report of the right and left heart cardiac catheterization being done in 09/2018 and pulmonary hypertension. On 06/04/2016, he had several days of difficulty finding words and came to the hospital where Dr. Dempsey of the Neurology Department felt that he had a TIA or small stroke resulting in aphasia. She felt that his etiology was most likely cardiac and added 81 mg of aspirin daily to his warfarin. He had experienced bilateral pulmonary emboli on 01/01/2016. 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 There was an ulcerated descending colon lesion on colonoscopy. He has hypertension, osteoarthritis, vitamin B12 deficiency, BPH, depression after the of his several years earlier. He is retired from [employer], and living with his girlfriend, Sherrell, who was present and able to give helpful information during the exam. He has two grown children and grandchildren. He quit smoking in 1998. In 2016, he drank 3 to 6 Spring Lite beers per day and occasionally more if he went to [facility] meeting. FAMILY HISTORY: Noncontributory. REVIEW OF SYSTEMS: He indicates he is having no stomach problems. His ears may be clogged. He denies urinary problems and problems with his legs or problems other than his pulmonary problems. MEDICATIONS: As taken from the hospital computer record. ALLERGIES: ARE LISTED AMLODIPINE AND PENICILLIN G. MEDICATIONS: Atenolol 100 mg daily, furosemide 40 mg daily, mirtazapine 30 mg at bedtime, mycophenolate mofetil (CellCept) 500 mg twice daily, omeprazole 40 mg twice daily before meals, potassium chloride 20 mEq packet daily, prednisone 20 mg every other day, simvastatin 40 mg daily, tamsulosin 1 capsule before bedtime, vitamin B12 1000 mcg subcutaneously once a month and warfarin 10 mg daily at 6 in the evening. OBJECTIVE: GENERAL: Shows a 78-year-old male, appearing his stated age, in the hospital bed. He is mildly short of breath at rest with high flow nasal oxygen providing a FiO2 of 50%. LUNGS: Mostly clear with a few crackles that persist in both bases. CARDIOVASCULAR: S1 and S2 are normal. ABDOMEN: Soft and nontender without hepatosplenomegaly or masses. EXTREMITIES: There is mild edema in both lower extremities. NEUROLOGIC: Screening neurological examination is intact. LABORATORY DATA: Oxygen saturation is 96% on 40 liters per high flow cannula providing 50% FiO2. Earlier today saturation was 80% on 15 liters. Creatinine is 1.4 compared with the baseline of 1.2 and glucose 172 random. Troponin mildly elevated at 0.15 when repeated. NT-proBNP is 7702 compared with 2955 on 10/09/2018. WBC are 25,000 with a mild left shift, hemoglobin is elevated at 17.0, [address] [address] HISTORY AND PHYSICAL Name: CLARISSA MARTINEZ Room #: 209-P [facility] IN [facility]#: [id number] Admission: 10/30/18 ������������������ Attend Phys: Cipriano Amado MD Discharge: ������������������ Date of : 41 Report #: [id number] hematocrit elevated at 52.5 and MCV of 76.5. pH is 7.438, pCO2 is 29, pO2 was 59 with a base excess of -3.3 and measured saturation of 90.7 on 10 liters by nasal cannula. CTA of the chest with pulmonary embolism protocol showed extensive emphysematous blebs and bulla with moderate atelectasis and septal thickening in the left lung base with superimposed pneumonia likely present. A pleural based mass in the posterior medial left thorax was not visible on previous study and may represent an area of infiltrate, although tumor could not be excluded. Pulmonary arteries were negative for pulmonary emboli. Ascites was present of the upper abdomen when compared to a CTA of the chest on 11/30/2017. Plain films showed bibasilar non-consolidative interstitial opacities likely pulmonary fibrosis with an infiltrate on the left in the bases. ASSESSMENT: 1. Left lower lobe infiltrate versus mass. 2. Progressive respiratory failure. 3. Progressive pulmonary fibrosis. 4. Small elevation of troponin. 5. He is immunosuppressed being on chronic corticosteroids and CellCept. 6. Erythrocytosis with microcytosis. 7. History of pulmonary emboli from 2016. 8. History of a small stroke/TIA also from 2016, which warranted the addition of baby aspirin at that time, which is currently missing from his medication list. 9. Other medical problems as mentioned above. PLAN: The patient is admitted and antibiotics and intravenous steroids have been started by his program writer, Dr. Cameron Heath. Infectious Disease consultation will be obtained tomorrow because of his degree of immunosuppression. ��������������������������������������������� ���������������������������������������� By: ��������������������������������������������� 0033 0209 Ehsan Garcias MD /nt
[2018-10-30 11:34] VITALS: BP 119/68
[2018-10-30 12:14] LABS: HEMATOCRIT 52.5 % (42.0-52.0); MCH 24.8 pg (26.0-34.0); MCHC 32.4 g/dL (28.0-37.0); MCV 76.5 fL (80.0-100.0); PLATELET COUNT 472 thou/uL (150-400); RBC 6.86 mil/uL (4.50-6.00); RDW 20.5 % (10.5-14.5); WBC 25.1 thou/uL (4.0-11.0)
[2018-10-30 12:17] LABS: CALCIUM 9.1 mg/dL (8.5-10.1); CREATININE 1.4 mg/dL (0.7-1.3); POTASSIUM 4.5 mmol/L (3.5-5.1)
[2018-10-30 12:25] LABS: BE(vivo) -3.3 mmol/L (-2 to +3); HCO3 19.2 mmol/L (22.0-26.0); pH 7.438 (7.360-7.450); sO2 91.9 % (92.0-98.0)
[2018-10-30 12:25] LABS: TROPONIN-I 0.13 ng/mL (<0.06)
[2018-10-30 12:27] LABS: ABSOLUTE NEUTROPHILS 23.3 thou/uL (1.4-8.2); LARGE PLATELETS MANY; PLATELET ESTIMATE NORMAL
[2018-10-30 12:28] LABS: ANISOCYTOSIS 1+
[2018-10-30 15:37] VITALS: BP 133/80
--- NOTE | 2018-10-30 17:12 | EKG ---
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 : 1940 Requested By: Tj Braun Order Number: [id number] MD: Rolan Zavaleta Measurements Intervals [place] Rate: 54 P: AL: QRS: 87 QRSD: 132 T: 102 QT: 506 QTc: 480 Interpretive Statements Atrial fibrillation Nonspecific ST and T wave abnormality Compared to ECG 10/09/2018 08:40:22 Sinus rhythm no longer present Electronically Signed On 10-30-2018 17:11:54 CDT by Rolan Zavaleta [email or web address] ��������������������������������������������� <ELECTRONICALLY SIGNED> ���������������������������������������� By: Rolan Zavaleta MD, [facility] ��������������������������������������������� 10/30/18 1711 1212 11 Rolan Zavaleta MD, [facility] /EPI
[2018-10-30 18:01] VITALS: BP 133/78
[2018-10-30 18:15] VITALS: BP 153/80
--- NOTE | 2018-10-30 19:29 | NUR ---
PATIENT WILL KEEP SATS GREATER THAN 90%. RECIEVED PATIENT FROM ER AT 1810 ON 40L WARM HIGH FLOW CANNULA. LUNGS DIMINISHED WITH CRACKLES IN BASES. OX4. UP WITH ASSIST UNTIL BREATHING AND SATS IMPROVE. REGULAR DIET. REPORT GIVEN TO PILAR ALEMAN.
[2018-10-30 20:20] VITALS: BP 134/68
[2018-10-31 00:05] VITALS: BP 131/81
[2018-10-31 03:53] VITALS: BP 122/75
[2018-10-31 04:42] LABS: HEMATOCRIT 47.6 % (42.0-52.0); HEMOGLOBIN 15.3 gm/dL (14.0-18.0); MCH 24.7 pg (26.0-34.0); MCHC 32.2 g/dL (28.0-37.0); MCV 76.8 fL (80.0-100.0); RDW 20.1 % (10.5-14.5); WBC 22.1 thou/uL (4.0-11.0)
[2018-10-31 04:44] LABS: INR 1.9; PROTIME 19.7 Seconds (9.3-11.4)
[2018-10-31 04:51] LABS: ALBUMIN 3.8 g/dL (3.4-5.0); CALCIUM 8.8 mg/dL (8.5-10.1); CREATININE 1.2 mg/dL (0.7-1.3); POTASSIUM 4.6 mmol/L (3.5-5.1); TOTAL BILIRUBIN 1.5 mg/dL (<0.1-1.0); TOTAL PROTEIN 6.7 g/dL (6.4-8.2)
[2018-10-31 05:00] LABS: PLATELET COUNT 358 thou/uL (150-400)
[2018-10-31 05:38] LABS: ABSOLUTE NEUTROPHILS 21.7 thou/uL (1.4-8.2)
[2018-10-31 05:39] LABS: ANISOCYTOSIS 2+; LARGE PLATELETS SEVERAL; OVALOCYTES FEW
--- NOTE | 2018-10-31 05:49 | NUR ---
ASSUMED CARE 1900. PT DX SOB AND PNA. ON HIGH FLOW NC DURING THE NIGHT. SAT > 90. PT AO X4. DENIES ANY PAIN. VITALS STABLE. THIS MORNING TROPONIN 0.11 WILL CONTINUE TO MONITOR PATIENT.
[2018-10-31 07:50] VITALS: BP 145/65
[2018-10-31 11:55] VITALS: BP 121/58
[2018-10-31 12:09] LABS: ESR (SEDRATE) 1 mm/hour (0-19)
[2018-10-31 15:30] VITALS: BP 115/70
--- NOTE | 2018-10-31 17:25 | NUR ---
PT ADMITTED RELATED TO COPD. CM REVIEWED CHART AND SPOKE WITH CARE TEAM. CM MET WITH PT AND SIG OTHER AT BEDSIDE THIS DAY. PT IS A&O X4. CM ROLE INTRODUCED. PT INDICATED HE LIVES IN A HOUSE WITH HIS SIG OTHER OVIDIO WITH 1 STEP TO ENTER AND NO STEPS INSIDE. PT INDICATED HE HAD USED A CANE TO ASSIST WITH MOBILITY FORENSIC BALLISTICS EXPERT. PT INDICATED HE HAS HOME O2 THROUGH [employer] AND THAT HE HAD BEEN ON 6-7L AT REST AND UP TO 15 WITH ACTIVITY FORENSIC BALLISTICS EXPERT. PT INDCIATED HIS CONCENTRATOR ONLY GOES UP TO 10 AND HIS PORTABLE TANKS ONLY GO UP TO 15, PT WAS WONDERING IT THEY HAVE SUPPLIES THAT GO HIGHER HE IS CURRENTLY ON 17. CM INDICATED THAT CM WOULD CHECK WITH PP LIAISON. PT INDICATED HE HOPES TO RETURN HOME ONCE MEDICALLY STABLE. CM TO FOLLOW INDICATED WITH DC PLANNING.
--- NOTE | 2018-10-31 17:55 | NUR ---
AAOX3 VERY PLEASANT AND COOPERATIVE. REMAINS ON HIGH FLOW O2 AT 40% CONTINUOUS O2 SAT MONITOR ON. LUNGS DIMINISHED WITH CRACKLES. GOOD APPETITE. UP TO COMMODE ONE TIME THIS SHIFT WITH O2 DROPPED TO 79 SKIN INTACT NO EDEMA. FAMILY PRESENT MOST OF SHIFT.
[2018-10-31 19:38] VITALS: BP 110/68
--- NOTE | 2018-11-01 02:56 | NUR ---
PT ALERT AND ORIENTED. DENIES CHEST PAIN, NAUSEA, VOMITING, DIARRHEA. ON STEROIDS. BG Q6. ON HIGH FLOW OXYGEN NASAL CANNULA. CONTINUES WITH ABX FOR PNEUMONIA. NO FURTHER COMPLAINS AT THIS TIME. WILL CONTINUE WITH PLAN OF CARE.
[2018-11-01 03:43] LABS: PROTIME 20.3 Seconds (9.3-11.4)
[2018-11-01 04:56] VITALS: BP 141/78
[2018-11-01 07:41] VITALS: BP 157/78
[2018-11-01 11:37] VITALS: BP 126/79
--- NOTE | 2018-11-01 13:18 | HC ---
[facility] [place] [address] CONSULTATION Name: CLARISSA MARTINEZ Room #: 209-P ADM IN M.R.#: [id number] Admission: 10/30/18 ������������������ Attend Phys: Cipriano Amado MD Discharge: ������������������ Date of : 41 Report #: [id number] THIS REPORT FOR: //name// CC: CIPRIANO Amado DATE OF SERVICE: 10/31/2018 ATTENDING PHYSICIAN: Dr. Amado. REASON FOR CONSULTATION: Left pulmonary infiltrates, immunocompromised host. HISTORY OF PRESENT ILLNESS: A 78-year-old white man with COPD -- pulmonary fibrosis -- immunosuppressed host, mycophenolate and prednisone. The patient apparently was scheduled to have pulmonary function studies, was found to be hypoxemic at rest. He is admitted, started on ceftriaxone, azithromycin, requiring high flows supplemental oxygen through the BiPAP. The patient denies having had fevers or night sweats. The intentional weight loss of 63 pounds in the last year, initially production up of grayish sputum. No hemoptysis. Evaluated by Pulmonary Services and discussed situation with Dr. Cipriano Amado. At present, the patient's main complaint is that of shortness of breath. He denies having had fevers, night sweats, hemoptysis, obviously increasing shortness of breath. He is not very happy traveling to for his pulmonary physician appointment and rather happy with the care by doctor. DRUG ALLERGIES: PENICILLIN, AMLODIPINE. MEDICATIONS: The patient is currently on treatment with cyanocobalamin 1000 mcg subcutaneously monthly. Mirtazapine 30 mg at bedtime, atorvastatin 20 mg at bedtime, furosemide 40 mg p.o. daily, KCl 20 mEq daily, azithromycin 500 mg IV daily, ceftriaxone 1 g IV daily, metoprolol 100 mg p.o. daily, pantoprazole 40 mg daily, tamsulosin 0.4 mg at bedtime, subcutaneous heparin 5000 units every 8 hours, methylprednisolone 80 mg t.i.d. IV., insulin lispro per sliding scale. Atrovent albuterol inhalation treatments, p.r.n. glucose glucagon. On high flow oxygen through nasally on FiO2 of 40%. PAST MEDICAL HISTORY: 1. Chronic obstructive pulmonary disease with emphysematous bullous changes and pulmonary fibrosis 2. Coronary artery disease, status post coronary artery stenting with partial blockage of the stents and chronic, stable atrial fibrillation and evidence of diastolic congestive heart failure. Previous appendectomy. Previous gastrointestinal bleeding. 3. Hypertension. Previous TIA. Previous pulmonary embolus 4. History of Lora-Thompson, gastroesophageal tears. 5. Osteoarthritis. Vitamin B12 deficiency, [place] [address] CONSULTATION Name: CLARISSA MARTINEZ Room #: 209-P [facility] IN ..#: [id number] Admission: 10/30/18 ������������������ Attend Phys: Cipriano Amado MD Discharge: ������������������ Date of : 41 Report #: [id number] SOCIAL HISTORY: with new . See H and P, old record. FAMILY HISTORY: See H and P, old records. REVIEW OF SYSTEMS: As above. PHYSICAL EXAMINATION: GENERAL: Well-developed, not toxic looking man, requiring supplemental oxygen. VITAL SIGNS: Temperature 98.3, pulse 64, respirations 18, BP 145/65, O2 saturation 94% on FiO2 of 50% 40 liters per minute oxygen. HEENMT: Arcus cornealis. Status post bilateral cataract surgery. Upper and lower plates. NECK: Supple. No thyromegaly or lymphadenopathy. LUNGS: Crackles, left lung base. HEART: S1, S2. No gallops. ABDOMEN: Soft, no masses or megaly. PELVIC AND RECTAL: Deferred. EXTREMITIES: Reveal no clubbing, cyanosis, pretibial edema, ankle swelling. NEUROLOGIC: Grossly within normal limits. LABORATORY DATA: Sodium 135, potassium 4.6, BUN 14, creatinine 1.2, glucose is high at 172, 130 mg/dL this morning. Troponin mildly elevated at 0.15. NT-proBNP elevated at 7702. Protime 19.7, INR 1.9. WBC on admission 25,100, hemoglobin 17 g/dL, the MCV and MCH are low. I wonder if we are dealing with some iron deficiency anemia. Platelets 472,000. The white blood cell count differential on admission revealed 92% segmented neutrophils. ABGs on admission pH 7.43, pCO2 of 29, pO2 of 59, bicarbonate 19.2. Lactate normal. These set of gases is on O2 nasal cannula at 10 liters per minute. MICROBIOLOGY DATA: None available at this present time. Bronchoscopy in the year 2017 was completely negative for pathogens. RADIOLOGY EVALUATION: CT scan of the chest PE protocol revealed no pulmonary embolisms. Emphysematous changes with blood formation bilaterally and new left basilar pulmonary infiltrate. Sinusitis in the abdomen and splenomegaly present. ASSESSMENT: 1. 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 Chronic obstructive pulmonary disease -- emphysema -- bullous emphysema -- pulmonary fibrosis -- chronic respiratory failure, on supplemental oxygen. CellCept, prednisone. 3. Coronary artery disease, with chronic atrial fibrillation and diastolic congestive heart failure. 4. Mild hyperglycemia. [facility] [address] [place] [address] CONSULTATION Name: CLARISSA MARTINEZ Room #: 209-P ADM IN M.R.#: [id number] Admission: 10/30/18 ������������������ Attend Phys: Cipriano Amado MD Discharge: ������������������ Date of : 41 Report #: [id number] 5. Hypertension. 6. History of appendectomy. SUGGESTIONS: Recommend presently the patient not toxic looking, consequently recommend continuation of treatment with Rocephin and azithromycin for possible community-acquired pneumonia, though keeping in mind, he is an immunocompromised host. We will obtain ESR, CRP, fungal serology and spot TB test. Further recommendation pending clinical response to current regimen as well as laboratory findings. Dr. Amado, thank you for requesting my suggestions. ��������������������������������������������� <ELECTRONICALLY SIGNED> ���������������������������������������� By: Rigo Matias MD ��������������������������������������������� 11/01/18 1318 1026 1242 Rigo Matias MD /nt
--- NOTE | 2018-11-01 16:14 | NUR ---
AAOX4 VERY PLEASANT AND COOPERATIVE. FAMILY AT BEDSIDE ALL DAY. NO C/O PAIN. UP TO COMMODE X2. PROGRESSSING TOWARDS GOALS. IV LEFT ARM. LUNGS DIMINISHED. NO EDEMA - SKIN INTACT. GOOD APPETITE. REMAINS ON HIGH FLOW O2 AT 40%.
[2018-11-01 20:30] VITALS: BP 134/71
--- NOTE | 2018-11-02 03:29 | NUR ---
ASSUMED AT AT 1900. PT A0 X4. SIGNIFICANT OTHER AT BEDSIDE. PT IS CURRENTLY DNR. SOA WITH EXERTION. DENIES CHEST PAIN, NAUSEA OR VOMITING. VITALS STABLE. STILL ON STEROID AND ACCUCKES. NO CONCERNS REPORTED. WILL CONTINUE TO MONITOR.
[2018-11-02 03:53] LABS: INR 1.7; PROTIME 18.1 Seconds (9.3-11.4)
[2018-11-02 05:13] VITALS: BP 147/88
[2018-11-02 08:32] VITALS: BP 143/98
[2018-11-02 11:59] VITALS: BP 126/69
--- NOTE | 2018-11-02 12:12 | NUR ---
SW reviewed chart and spoke with nursing. Pt remains on IV abx and 4L high flow O2. Plan is for pt to d/c home when medically stable. LILIAN is following to assist as needed with discharge planning.
[2018-11-02 16:30] VITALS: BP 133/94
[2018-11-02 20:15] VITALS: BP 144/92
--- NOTE | 2018-11-03 03:54 | NUR ---
ASSUMED CARE AROUND 192; PT. ON BED; RELATIVE AT BED SIDE; 02 SAT ABOVE 90%; SOB WITH EXERTION (WHILE TALKING); NO C/O PAIN; DURING ASSESSMENT NO C/O PAIN; O2 SAT ABOVE 94%; C/O FEELING BLOADED; EDUCATED ABOUT THE NEED TO TURN FROM SIDE TO SIDE ON BED; ST. UNDERSTANDING; DURING ROUNDING AROUND 0250; O2 SAT ON THE 70'S' PT. MOVING TO USE URINAL; RESPIRATIONS ELABORATED; SOB; EDUCATED ABOUT TAKING DEPTH BREATHING; O2 SAT UP 92%; ABLE TO REST MOST OF THE NIGHT WITH EYES CLOSE; ASSESSMENT CHARGED; FOLLOWING POC; WILL PASS ON REPORT.
[2018-11-03 04:25] LABS: INR 1.5; PROTIME 15.4 Seconds (9.3-11.4)
[2018-11-03 04:33] LABS: ALBUMIN 3.6 g/dL (3.4-5.0); CALCIUM 8.4 mg/dL (8.5-10.1); CREATININE 1.2 mg/dL (0.7-1.3); POTASSIUM 4.7 mmol/L (3.5-5.1); TOTAL BILIRUBIN 1.5 mg/dL (<0.1-1.0); TOTAL PROTEIN 6.3 g/dL (6.4-8.2)
[2018-11-03 04:45] VITALS: BP 135/82
[2018-11-03 07:50] VITALS: BP 153/82
--- NOTE | 2018-11-03 10:41 | NUR ---
ASSUMED CARE OF PT AT 0700. NO PAIN/COMPLAINTS. PT STILL EXPERIENCING SOB/O2 SATURATION DROP WITH LITTLE EXERTION. PT WORKED WITH PT AND OT SAT ON SIDE OF THE BED. O2 SATURATION DROP TO 83%. PT RECOVERED CORRECTLY AND IS NOW RESTING IN BED WITH CALL LIGHT IN REACH. NO PAIN/CHEST PAIN REPORTED BY PT. WILL CONTINUE TO MONITOR.
[2018-11-03 11:37] VITALS: BP 137/67
[2018-11-03 16:00] VITALS: BP 133/83
--- NOTE | 2018-11-03 16:00 | NUR ---
Spoke with [facility] who reports they sent RT to patients home who completed a nocturnal desat study. At that time patient with need for 5 liters at rest and 15 liters with exertion. They provided etanks for increase oxygen with exertion. Patient cont with high liter flow anticipate no dc this weekend.
[2018-11-03 19:55] VITALS: BP 149/74
[2018-11-04 03:55] VITALS: BP 149/73
--- NOTE | 2018-11-04 04:05 | NUR ---
ASSUMED PT CARE AT 1900. PT A/OX4, FAMILY AT BEDSIDE. VITAL SIGNS STABLE, ASSESSMENT CHARTED. PT ON CONTINOUS PULSE OX, O2 SAT WITHIN NORMAL LIMITS. NO COMPLAINTS OF PIAN/CHESTPAIN. PT MENTIONED THAT HE GETS SOME CHEST DISCOMFORT WITH COUGHING BUT RESOLVES IMMEDIATELY AND ONLY HAPPENS WHEN HE COUGHS. PT'S O2 SAT TENDS TO DROP WITH ANY FORM OF ACTIVITY. PT ENCOURGAED TO DEEP BREATHE WHEN THAT HAPPENS. O2 SAT GOES UP TO NORMAL LIMITS WITH DEEP BREATHES. PT RESTED WELL THROUGH THE NIGHT. PROGRESSING TOWARD PLAN OF CARE. WILL CONTINUE TO MONITOR.
[2018-11-04 04:38] LABS: HEMATOCRIT 47.3 % (42.0-52.0); HEMOGLOBIN 15.7 gm/dL (14.0-18.0); MCH 25.2 pg (26.0-34.0); MCHC 33.1 g/dL (28.0-37.0); MCV 76.3 fL (80.0-100.0); PLATELET COUNT 211 thou/uL (150-400); RBC 6.21 mil/uL (4.50-6.00); RDW 20.8 % (10.5-14.5); WBC 22.9 thou/uL (4.0-11.0)
[2018-11-04 04:44] LABS: INR 1.4; PROTIME 14.7 Seconds (9.3-11.4)
[2018-11-04 04:54] LABS: CALCIUM 8.8 mg/dL (8.5-10.1); CREATININE 1.2 mg/dL (0.7-1.3); MAGNESIUM 2.5 mg/dL (1.8-2.4); POTASSIUM 3.9 mmol/L (3.5-5.1)
[2018-11-04 05:28] LABS: ABSOLUTE NEUTROPHILS 21.8 thou/uL (1.4-8.2); LARGE PLATELETS SEVERAL
[2018-11-04 05:29] LABS: ANISOCYTOSIS 2+; SCHISTOCYTES RARE
[2018-11-04 05:30] LABS: BURR CELLS 1+; OVALOCYTES 1+
[2018-11-04 07:15] VITALS: BP 145/96
[2018-11-04 11:00] VITALS: BP 145/63
--- NOTE | 2018-11-04 16:25 | NUR ---
PT CARE ASSUMED APPROX 0700. PT ALERT AND ORIENTED X4. DENIES PAIN AND SOA. VSS. PT DESATS UPON EXERTION BUT DENIES SOA. RECOVERS QUICKLY. UP TO BSC FOR BOWEL AND BLADDER. SBA. BS ELEVATED. SSI USED TO MANAGE. AT BEDSIDE. BOTH DENY QUESTIONS OR CONCERNS REGARDING POC. DIURESIS, IV STERIODS AND IV ABT REMAIN TO POC. BLANCHABLE REDNESS NOTED TO BILATERAL GLUTEUS. PT EDUCATED ON PRESSURE ULCERS AND ENCOURAGED TO SIT IN CHAIR. PT REFUSES AT THIS TIME. NO DISTRESS NOTED.
[2018-11-04 16:38] VITALS: BP 138/91
[2018-11-04 20:15] VITALS: BP 145/92
[2018-11-05 04:15] VITALS: BP 144/99
[2018-11-05 04:30] LABS: INR 1.4
--- NOTE | 2018-11-05 04:43 | NUR ---
ASSUMED PT CARE AT 1900. PT A/OX4, VITAL SIGNS STABLE, ASSESSMENT CHARTED. SOA WITH ACTIVITY, NO COMPLAINTS OF PAIN/CHEST PAIN. PT RESTED WELL THROUGH THE NIGHT. PROGRESSING TOWARD PLAN OF CARE. WILL CONTINUE TO MONITOR.
[2018-11-05 07:51] VITALS: BP 152/86
[2018-11-05 12:34] VITALS: BP 116/73
[2018-11-05 16:23] VITALS: BP 130/88
--- NOTE | 2018-11-05 16:35 | NUR ---
PT CARE ASSUMED APPROX 0700. PT ALERT AND ORIENTED X4. DENIES PAIN AND SOA. PT DESATS WHEN TRANSFERRING TO [facility] BUT DENIES SOA. RECOVERS QUICKLY. REMAINS TO HIGH FLOW OXYGEN. DOES NOT WANT TO GET OUT OF BED DESPITE BEING ENCOURAGED TO AND EDUCATED ON PRESSURE ULCERS. PT BUTTOCKS REMAIN RED BUT BLANCHABLE. IV ABT REMAINS TO POC. PT BS ELEVATED AT LUNCH. SSI USED TO CONTROL. IV STEROIDS AND DIURETICS REMAIN TO POC. NO DISTRESS NOTED.
[2018-11-05 18:48] VITALS: BP 151/99
[2018-11-05 19:48] VITALS: BP 151/99
--- NOTE | 2018-11-06 03:06 | NUR ---
ASSUMED PT CARE AT 1900. PT A/OX4, VITAL SIGNS STABLE. HIGHFLOW NC AT 40%. NO COMPLAINTS OF PAIN/CHEST PAIN. PT SEEMED COMFORTABLE, NO RESPITORY DISTRESS. PT RESTED WELL THROUGH THE NIGHT. PROGRESSING TOWARD PLAN OF CARE. WILL CONTINUE TO MONITOR.
[2018-11-06 04:00] VITALS: BP 134/86
[2018-11-06 04:33] LABS: INR 1.7; PROTIME 17.6 Seconds (9.3-11.4)
[2018-11-06 04:42] LABS: CALCIUM 8.6 mg/dL (8.5-10.1); CREATININE 1.1 mg/dL (0.7-1.3); POTASSIUM 3.6 mmol/L (3.5-5.1)
[2018-11-06 08:41] VITALS: BP 140/95
--- NOTE | 2018-11-06 11:48 | NUR ---
Assess for length of stay. Admitted with copd, progressive pulmonary fibrosis, immunocompromise. Pt voices good appetite. States had intentional ~70 lb wt loss over a year by reducting food portion sizes and satisfied with current wt status. Very pleasant mood. Low nutrition risk
[2018-11-06 12:34] VITALS: BP 151/89
[2018-11-06 15:58] VITALS: BP 153/88
--- NOTE | 2018-11-06 16:44 | NUR ---
PT CARE ASSUMED APPROX 0700. PT ALERT AND ORIENTED X4. DENIES PAIN. VSS. BS ELEVATED AC LUNCH. SSI USED TO CONTROL. PT DESATTING DURING TRANSFERS TO [facility]. PT DOES REPORTS SOA ON TRANSFERS BUT RECOVERS QUICKLY. REMAINS ON HIGH FLOW DEVICE. IV STERIODS, ABT, AND DIURESIS REMAIN TO POC. APPETITE GOOD. NO COMPLAINTS OR CONCERNS REGARDING POC. NO DISTRESS NOTED.
[2018-11-06 19:50] VITALS: BP 152/96
[2018-11-07 03:58] LABS: INR 2.3; PROTIME 23.4 Seconds (9.3-11.4)
[2018-11-07 05:21] VITALS: BP 128/72
--- NOTE | 2018-11-07 05:43 | NUR ---
PT VSS, CON'T TO DIURES, REMAINS MID 90'S ON OPTI FLOW O2 AT 40L AND FIO2 OF 50%, NO C/O PAIN, RESTING QUIETLY IN ROOM, WILL CON'T TO MONITOR PER PPOC.
[2018-11-07 06:55] VITALS: BP 134/77
[2018-11-07 07:56] LABS: CALCIUM 8.8 mg/dL (8.5-10.1); CREATININE 1.2 mg/dL (0.7-1.3)
--- NOTE | 2018-11-07 11:45 | NUR ---
Assumed pt care at 7am.Assessment completed. vss.Pt on optiflow o2 per nc. Blood sugar this am was 110,no insulin given but pt on steroid iv.Pt has good appetite and tolerated meds.Pt up to bsc and moderate bm noted.No verbal c/o. Will continue to monitor.
[2018-11-07 15:58] VITALS: BP 134/82
--- NOTE | 2018-11-07 17:28 | NUR ---
met with patient regarding dc planning. patient cont with high flow oxygen. His concentrator goes to 10 liters and tanks to 15 liters. He questions if [facility] can offer any options for concentrator to be higher if he moves in home he has to change to tanks. He reports when he moves he needs to rest for endurance. concerned if she can leave patient alone at home for periods of time. Therapy eval noted HH. Patient reports he has used in past but unsure if needed or helpful at dc. casemgt following.
[2018-11-07 20:35] VITALS: BP 136/74
[2018-11-08 01:20] VITALS: BP 141/86
[2018-11-08 01:27] VITALS: BP 141/86
--- NOTE | 2018-11-08 01:47 | NUR ---
AOX4. AFIB WITH [facility] ON THE MONITOR. 2+ EDEMA ON BOTH LOWER LEGS AND ANKLES, R>L. OPTIFLOW WITH FIO2 50-55%, O2 SATS AT 92-94%. CLEAR LUNG SOUNDS EXCEPT CLEAR DIMINISHED ON THE LEFT LOWER LOBE. SOA ON EXERTION. DENIES ANY PAIN. ABLE TO VOID WELL ON THE URINAL. BRUISES NOTED ON THE LOWER ABDOMEN. IV ONTHE LEFT FOREARM INTACT AND FLUSHES WELL. SEEN BY DR JIMENES AT BEDSIDE 20 BEATS OF VTACH noted. PATIENT ASYMPTOMATIC, DENIES PAIN. VS DONE. 01:29> CALLED DR AVILA ANSWERING SERVICE. 01:38>DR BARAJAS CALLED BACK. HE SAID TO INFORM HIM IF UNSUSTAINED. I TOLD HIM THAT THE LAST MAGNESIUM CHECK WAS LAST NOVEMBER 04 WITH RESULT OF 2.5. I ASKED HIM IF HE WOULD LIKE THE MAGNESIUM CHECKED THIS MORNING. HE ORDERED ELECTROLYTE REPLACEMENT PROTOCOL. READBACK DONE AND ORDERS ENTERED. FF UP POC.
[2018-11-08 04:29] LABS: CALCIUM 8.4 mg/dL (8.5-10.1); CREATININE 1.2 mg/dL (0.7-1.3); MAGNESIUM 2.5 mg/dL (1.8-2.4); POTASSIUM 3.9 mmol/L (3.5-5.1)
[2018-11-08 04:31] LABS: INR 2.8; PROTIME 28.8 Seconds (9.3-11.4)
[2018-11-08 04:45] VITALS: BP 133/79
[2018-11-08 07:58] VITALS: BP 146/95
[2018-11-08 11:22] VITALS: BP 133/80
--- NOTE | 2018-11-08 14:02 | NUR ---
spoke with Lolita with [facility] she will meet with patient later today or tomorrow. Patients concentrator can go no higher than 10 liters. cannot piggy back 2 concntrators. He is not a candidate for liquid oxygen as it does not go to high liter flow he needs. His oxygen needs in home setting are met to best accomdation for patient. Lolita will meet with patient and review.
--- NOTE | 2018-11-08 18:31 | HC ---
[facility] [place] [address] CONSULTATION Name: CLARISSA MARTINEZ Room #: 209-P ADM IN .R.#: [id number] Admission: 10/30/18 ������������������ Attend Phys: Cipriano Amado MD Discharge: ������������������ Date of : 42 Report #: [id number] THIS REPORT FOR: //name// CC: CIPRIANO Amado PULMONARY CONSULTATION REFERRAL PHYSICIAN: Dr. Amado. REASON FOR REFERRAL: Progressive hypoxia, dyspnea. HISTORY OF PRESENT ILLNESS: The patient is a 78-year-old white male, who is well known to this physician. He has been diagnosed with idiopathic pulmonary fibrosis. Over the last 2 weeks, he has noticed progressive dyspnea. With worsening symptoms, he presents to the Emergency Room. The patient was previously hospitalized in 2016 for bilateral pulmonary embolus. This is felt to be provoked. He was subsequently then found to have interstitial lung disease. Subsequent workup suggests idiopathic pulmonary fibrosis. Since then, he has been followed by Dr. Macedo at [facility] at the [facility]. He is currently on prednisone 10 mg every other day along with mycophenolate 500 mg p.o. b.i.d. for his IPF. He has been on chronic O2 for a number of years. More recently, he is requiring up to 6-7 liters of O2 24 hours a day. Otherwise, he denies any recent febrile illness, chest pain or productive cough. He simply felt more short of breath. His CT chest angiogram was performed earlier today when seen by the ED Department. The CT chest shows mild interstitial changes, involving the left lung field. No consolidation. There is questionable pleural base density in the left lower lobe. Right lung field was grossly unremarkable. There are bilateral bullous changes seen. Volume loss is also noted in the left lung field. No pulmonary embolus is seen. There is an ill-defined pleural base density seen in the left lower lobe area. There is no discrete mass effect. PAST MEDICAL HISTORY: As mentioned above. 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 ALLERGIES: AMLODIPINE, PENICILLIN G, REACTIONS NOT SPECIFIED. HOME MEDICATIONS: List reviewed as mentioned above including Flomax, atenolol, [facility] [address] [place] [address] CONSULTATION Name: MICHELLECLARISSA L Room #: 209-P [facility] IN [facility]#: [id number] Admission: 10/30/18 ������������������ Attend Phys: Cipriano Amado MD Discharge: ������������������ Date of : 41 Report #: [id number] Zocor, vitamin B12 shots, Remeron, Coumadin 5 mg once a day, omeprazole, Lasix, K-Dur, mycophenolate 500 mg p.o. b.i.d. The prednisone should be 20 mg every day. FAMILY HISTORY: Noncontributory. SOCIAL HISTORY: The patient has smoked, but quit many years ago. Denies any alcohol use. REVIEW OF SYSTEMS: As mentioned above. It is notable for progressive dyspnea. Of note, the patient's dyspnea did not seem to have improved following mycophenolate, long prednisone therapy. PHYSICAL EXAMINATION: GENERAL: He is awake, alert, in moderate distress. He appears dyspneic. VITAL SIGNS: Temperature is 98 degrees Fahrenheit, pulse is 64, respiratory rate is 20, blood pressure 153/80 mmHg, saturation 91%. HEENT: Normocephalic, atraumatic. NECK: Supple, without lymphadenopathy or thyromegaly. CHEST: Breath sounds are fair, bilateral crackles, more than the left in the right lung field. No wheezes. CARDIOVASCULAR: Normal S1, S2. There is no murmur or gallop. There is no JVD, no carotid bruit. Pulses are 2+/4+ bilaterally. ABDOMEN: Soft, nontender, no organomegaly or masses felt. GENITOURINARY AND RECTAL: Deferred. EXTREMITIES: There is edema, cyanosis or clubbing. LABORATORY DATA: CT chest as mentioned above. Troponin is mildly elevated at 0.15. EKG shows atrial fibrillation. Electrolytes normal except for creatinine 1.4. WBC 25,100 without bandemia. Arterial blood gas revealed pH 7.43, pCO2 of 29, pO2 59 on 10 liters of O2. IMPRESSION: 1. Progressive hypoxia in a 78-year-old white male per CT chest as mentioned above. He has a history of idiopathic pulmonary fibrosis diagnosed about 2 years ago. He is currently on low-dose prednisone and mycophenolate. The finding of CT chest suggests that his current progressive hypoxia is likely related to exacerbation of idiopathic pulmonary fibrosis. Infection is felt to be less likely. Chronic obstructive pulmonary disease is likely contributing. 2. Idiopathic pulmonary fibrosis, on treatment as mentioned above. He has been about 2 years now since his diagnosis. The patient is following at [facility]. According to the patient, he is not certain whether his dyspnea has improved over time or not. 3. Chronic obstructive pulmonary disease, bullous changes, corticosteroids and bronchodilators. 4. Elevated troponin along with history of coronary artery disease, we will [address] [address] CONSULTATION Name: CLARISSA MARTINEZ Room #: 209-P [facility] IN [facility]#: [id number] Admission: 10/30/18 ������������������ Attend Phys: Cipriano Amado MD Discharge: ������������������ Date of : 41 Report #: [id number] need to follow up, but more than likely due to myocardial stress demand due to hypoxia. 5. Atrial fibrillation due to pulmonary disease. 6. Pulmonary hypertension due to severe pulmonary disease including chronic obstructive pulmonary disease and idiopathic pulmonary fibrosis. 7. Renal insufficiency. Past history of chronic kidney disease with baseline creatinine around 1.2-1.3. Follow renal function closely. 8. Medical directive. At this time, the patient and family desire to be full code blue. RECOMMENDATIONS: Corticosteroids, broad spectrum antibiotics, bronchodilators. Wean O2 for saturation 90%. If oxygenation becomes a problem, the patient may need to be in ICU. Noninvasive ventilation may also be beneficial due to concern for progressive fatigue given his tachypnea and hypoxia. DVT and GI prophylaxis recommended. He is already on Coumadin for his severe pulmonary hypertension. Additional comment: Overall prognosis felt to be guarded to poor given his IPF and profound hypoxia. This has been discussed in detail with the patient's family. Thank you for this consultation. ��������������������������������������������� <ELECTRONICALLY SIGNED> ���������������������������������������� By: Cameron Heath MD ��������������������������������������������� 11/08/18 1831 [id number] Cameron Heath MD /nt
--- NOTE | 2018-11-08 19:27 | NUR ---
AAAOX4 VERY PLEASANT AND COOPERATIVE. GOOD APPETITE. LUNGS DIMINISHED AND WHEEZY. REMAINS ON HIGH FLOW 40% O2 SAT MONITOR ON. IV SALINE LOCK LEFT ARM FAMILY AT BEDSIDE. UP TO BSC WITH MIN ASSIST. HAD BM ON COMMODE.
[2018-11-08 19:55] VITALS: BP 134/72
--- NOTE | 2018-11-09 01:42 | NUR ---
AOX4, AFIB RATE CONTROLLED. 2+ EDEMA ON BOTH LOWER LEGS AND BOTH ANKLES, R>L. PULSES 2+/1+. ON OPTIFLOW 02, CONTINUOUS PULSE 02. CLEAR LUNG SOUNDS DIMINISHED ON THE BASES. DYSPNEIC ON MINIMAL EXERTION. NON PRODUCTIVE COUGH NOTED. DENIES PAIN. HYPOACTIVE BS. VOIDS WELL ON THE URINAL. PATIENT REFUSED SCD. LEFT FA IV SALINE LOCKED, INTACT AND FLUSHES WELL. MAINTAINED ON HIGH FALL PRECAUTION. FF UP POC.
[2018-11-09 03:53] LABS: INR 3.3; PROTIME 34.5 Seconds (9.3-11.4)
[2018-11-09 04:45] VITALS: BP 130/79
[2018-11-09 06:54] VITALS: BP 146/85
[2018-11-09 16:17] VITALS: BP 125/72
--- NOTE | 2018-11-09 16:38 | NUR ---
ASSESSMENT CHARTED - MEDS PER OCT. NO9 CO'S OF PAINI OR NAUSEA. O2 REMAINS ON - HIGH FLOW 60%. PT SOA WITH MIN EXERTION - UP TO [facility] THIS AM - SMALL BM. SEEN BY PHYS AND OCC THERAPY. CONT TO HAVE ODEMA IN LEGS AND FEET BILAT - LASIX GIVEN ORDERED. NTOL DIET AND FLUIDS. PT STATES THAT HE HAS FELT BETTER TODAY THAN HE HAS IN A WHILE. NO CO'S AT THE PRESENT TIME.
[2018-11-09 19:55] VITALS: BP 124/76
--- NOTE | 2018-11-10 03:31 | NUR ---
ASSESSMENT DOCUMENTED. AFIB RATE CONTROLLED, DENIES PAIN. 2+ EDEMA ON BOTH LOWER LEGS AND ANKLES. OPTIFLOW 02 60 WITH FIO2 45%. CLEAR, DIMINISHED ON THE BASES. CONTINUOUS PULSE OX WITH O2 SATS AT 92%-94%. NON PRODUCTIVE COUGH. SOA WITH MINIMAL EXERTION. VOIDS WELL ON THE URINAL. STILL WITH BRUISING ON ABDOMEN. LEFT FA IV INTACT AND FLUSHES WELL. FF UP POC.
[2018-11-10 04:45] VITALS: BP 131/80
[2018-11-10 05:27] LABS: INR 4.3; PROTIME 44.9 Seconds (9.3-11.4)
[2018-11-10 05:29] LABS: CALCIUM 8.2 mg/dL (8.5-10.1); CREATININE 1.1 mg/dL (0.7-1.3); POTASSIUM 3.9 mmol/L (3.5-5.1)
[2018-11-10 07:45] VITALS: BP 131/89
--- NOTE | 2018-11-10 09:03 | NUR ---
PT IS A70X4, AMB STEADY YET HAS HI FLOW 02 AND VERY SOA W/MINIMAL MOVEMENT, DISCUSSED SOMETHING POSSIBLE FOR ANXIETY THAT COMES FROM THE SOA AND ANXIETY. [facility] LIAISON, URINE CLEAR, GOOD APPETITE, WILL CONTINUE TO MONITOR. ENCOURAGED PT TO USE CALL LIGHT FOR ANY NEEDS
[2018-11-10 12:05] VITALS: BP 131/88
--- NOTE | 2018-11-10 15:32 | NUR ---
Case discussed with the care team. Pt continues to be sob with any activity and requiring high flow o2. Pt's functional status is limited by his sob. [facility] declined referral as he is too high level. [facility] notified of possible hh referral as they have had him in the past. Nursing has a call out to the attending for possible anxiety med. Sign other here at bedside and supportive. Will follow.
[2018-11-10 15:48] VITALS: BP 161/86
[2018-11-10 19:07] LABS: ADENOVIRUS Negative (Negative); INFLUENZA A Negative (Negative); INFLUENZA B Negative (Negative); METAPNEUMOVIRUS Negative (Negative); PARAINFLUENZA 1 Negative (Negative); PARAINFLUENZA 2 Negative (Negative); PARAINFLUENZA 3 Negative (Negative); RHINOVIRUS Negative (Negative); RSV A Negative (Negative); RSV B Negative (Negative)
[2018-11-10 19:18] VITALS: BP 145/85
--- NOTE | 2018-11-11 05:47 | NUR ---
ASSUME CARE 1900. PT/VITALS STABLE. NO DISCTRESS NOTED. DENIES ANY PAIN. MODERATELY TOLERATES ACTIVITY. ON HIGH FLOW OXYGEN AT 61.9% WITH SATS BETWEEN 90-92%. ASSESSMENT CHARTED. SLOWLY PROGRESSING WITH POC. PROGNOSIS ARE NOT GOOD PER MD'S NOTES. PLAN IS DISCUSSION FOR POSSIBLE DISCHARGE TO HOSPICE HOUSE. WILL CONTINUE TO FOLLOW WITH POC
[2018-11-11 05:50] VITALS: BP 129/79
[2018-11-11 06:10] LABS: INR 4.3; PROTIME 44.6 Seconds (9.3-11.4)
--- NOTE | 2018-11-11 17:02 | NUR ---
ASSESSMENT CHARTED - MEDS PER OCT - NO CO'S OF PAIN OR NAUSA. UP AD MARY IN ROOM - SOA WITH EXERTION - SAT WITH EXERTION IN LOW 90'S MID TO UPPER 90'S WITH REST. 02 CONTINUES ON HIGH FLOW CANNUAL. SEEN BY DR JIMENES THIS AM - DOCTOR WITH PATIENT FOR EXTENDED PERIOD OF TIME DISCUSSING PLAN OF CARE. SIG OTHER AT THE BEDSIDE WITH PATIENT FOR MOST OF THE DAY. NO CO'S AT THE RPESENT TIME STATES HE IS COMFROTABLE.
--- NOTE | 2018-11-11 18:24 | NUR ---
SIG OTHER TO THE DESK TO ASK ME TO COME CHECK ON PATIENT - ENTERED THE ROOM AND PATIENT HAING DIFFICULTING SPEAKING - NOT ABLE TO PUT SENTECES TOGETHER AND NOT MAKING SENSE - WS ABLE TO TELL ME WHAT DAY /MONHT AND YEAR - UNABLE TO TELL ME PRESIDENT. LEFT ROOM TO OBTAIN FLASH LIGHT - ON RETURN - PUPILS EQUAL AND REACTIVE - ABLE TO HOLD LEGS IN AIR WITH NO DRIFTING FOR THE COUNT OF TEN - NO ARM DRIFT FOR THE COUNT OF 10 - SMILE EQUAL BILAT - NO TONGUE DEVIATION. PT NEURO BACK TO NORMAL ABLE TO CONVERSE - STATED HE FELT SOMEWHAT ANXIOUS GAVE XANEX. CALL PLACED TO THE DOCTOR ANGLES LEFT MESSAGE - WAITING FOR RETURN CALL.
[2018-11-12 04:38] VITALS: BP 118/79
--- NOTE | 2018-11-12 05:47 | NUR ---
ASSUME CARE 1900. PT/VITALS STABLE. DENIES ANY PAIN. A/O X 4. NO EPISODE OF DECREASED LOC NOTED THROUGH THE SHIFT. NIH WITH ASSESSMETNS NEGATIE. RIKI NOTED. NO DRIFT IN EXTREMITIES OR TONGUE. REASONING INTACT. ASSESSMETN CHARTED. PROGRESSING SLOWLY WITH POC, STILL ON 60% OXYGEN SATTING MID 90S WHEN UP AND LOW 90S WITH SLEEP. PLAN IS TO CONTINUE DISCUSSIONS ON HOSPICE HOUSE TOGETHER WITH FAMILY. WILL CONTINUE TO MONITOR AND FOLLOW WITH POC
[2018-11-12 08:15] VITALS: BP 135/87
[2018-11-12 10:29] VITALS: BP 124/71
--- NOTE | 2018-11-12 17:42 | NUR ---
PT ALERT AND ORIENTED. VSS. ON 60% HIGH FLOW O2. SAT ABOVE 95%. DENIES HAVING PAIN OR DISCOMFORT. SOB NOTED WITH ACTIVITY. CHECKED FREQUENTLY AND NEEDS MET. WILL CONTINUE TO MONITOR.
[2018-11-12 19:55] VITALS: BP 123/77
[2018-11-13 04:45] VITALS: BP 126/66
--- NOTE | 2018-11-13 05:31 | NUR ---
ASSUME CAR E1900. PT/VITALS STABLE. DENIES ANY PAIN. TOLERATES ACTIVITY MODERATELY. ASSESSMENT CHARTED. ADEQUATE REST NOTED THROUGH THE NIGHT. PLAN IS TO CONTINUE WITH LASIX AND STERIODS TO IMPROVE RESP FUNCTION AND EDEMA. WILL CONTINUE TO MONITOR AND FOLLOW WITH POC
[2018-11-13 07:34] LABS: PROTIME 27.4 Seconds (9.3-11.4)
[2018-11-13 07:36] LABS: INR 2.6
[2018-11-13 07:40] VITALS: BP 127/69
--- NOTE | 2018-11-13 12:19 | NUR ---
Nutrition followup: pt remains on CCU for COPD, progressive pulmonary fibrosis, on high flow O2. Continues to eat very well. Stable weights over admit. Significant intentional weight loss over the past year-favorable. Obtained further food preferences. Understands how to order meals. Low risk.
--- NOTE | 2018-11-13 13:53 | NUR ---
FAXED REFERRAL TO HOSPICE HOUSE SPOKE WITH MAVERICK AND SHE RECEIVED REFERRAL SHE WILL EVAL PT. DCP TO FOLLOW.
--- NOTE | 2018-11-13 15:42 | NUR ---
Discussed [facility] eval with patient and s/o at bedside. They are in agreement. [facility] evaled and reports patient is appropriate for house however they do not have optiflow at house. They request transition to nonrebreather and nasal cannula. Sp with Dr Amado and Dr Murry. They discussed and plan to transition this evening and possible hospice house transition in am. Son Tone arrived for discussion. All in agreement with plan. Outside DNR on chart.
--- NOTE | 2018-11-13 18:08 | NUR ---
HOSPICE CAME TO SEE PATIENT TODAY, WILL GO TO INPATIENT TOMORROW. WEANED OFF HIGH FLOW NC AND NOW ON 15 LITERS NC AND 100 NRB IN PREPERATION FOR TRANSFER TO HOSPICE FACILITY TOMORROW. TOLERATING WELL. MORPHINE 4MG GIVEN FOR CHEST DISCOMFORT WHEN TAKING BREATHS AND IT WAS EFFECTIVE
[2018-11-13 20:15] VITALS: BP 110/56
[2018-11-14 04:20] VITALS: BP 119/67
--- NOTE | 2018-11-14 05:32 | NUR ---
ASSUMED CARE AROUND 1900. AXOX4. ON HIGH FLOW NASAL CANNULA AND THE NON REBREATHER MASK 15L EACH. RT ROUNDS WITH BREATHING TX. DNR. NO TELEMETRY. FREQUENT VISUAL CHECKS DONE TO MAINTAIN SAFETY. DENIES CHEST PAIN/N/V. SOB WITH EXERTION. NO S/S ACUTE DISTRESS NOTED OR REPORTED AT THIS TIME. WILL CONT TO MONITOR FOR ANY CHANGES IN CONDITION.
[2018-11-14 07:43] LABS: INR 2.4; PROTIME 24.9 Seconds (9.3-11.4)
[2018-11-14 08:02] VITALS: BP 124/72
[2018-11-14] MEDS ORDERED: COUMADIN 3 MG TA3 MG PO (11:21)
[2018-11-14] MEDS ORDERED: IPRAT-ALBUT 0.5-3 ML INH ×2 (11:21)
[2018-11-14] MEDS ORDERED: METOPROLOL SUCC50 MG PO (11:22)
[2018-11-14] MEDS ORDERED: COZAAR 50 MG TA50 M1 PO (11:22)
[2018-11-14] MEDS ORDERED: MORPHINE SU4 MG/1 M1 IV PUSH (11:23)
[2018-11-14] MEDS ORDERED: LORAZEPAM 22 MG/1 ML IV PUSH (11:24)
[2018-11-14] MEDS ORDERED: KLOR-CON20 ME1 PO (11:24)
[2018-11-14] MEDS ORDERED: FUROSEMIDE20 MG/2 ML PO (11:25)
[2018-11-14] MEDS ORDERED: MUCINEX600 MG PO (11:25)
[2018-11-14] MEDS ORDERED: PREDNISONE 20 MG PO (11:25)
[2018-11-14 12:06] VITALS: BP 122/76
--- NOTE | 2018-11-14 12:55 | NUR ---
PT. DISCHARGING TODAY TO [facility]. FAXED DC ORDERS TO FACILITY ORDERS RECEIVED AND TRANSPORT ARRANGED VIA AMBULANCE ([facility]) FOR 1330 TODAY. FAMILY NOTIFIED PER . UNIT NOTIFIED AND CHART COPY PER US. RN TO CALL REPORT TO [phone].
--- NOTE | 2018-11-14 13:56 | NUR ---
Patient overnight has been able to be taking off optiflow and has been at 15 liters nasal cannula and 15 liters non rebreather. [facility] can accomadate that flow of oxygen. Sp with [facility] who also can accomadate for short distance. patient to dc to [facility]. Dr Amado rounded on patient and dc to [facility]. Patient has been A/Ox4 making decision for [facility] and participating in discussion. Patient more somulent today. S/O at bedside she is in agreement with plans. She plans to call son Tone to alert of dc and timeframe. She is tearful. Support given. Sp with Arlet at [facility] she reports bed avail. Faxed orders. Outside DNR on chart. Chart copied. [facility] for 1330 they are aware of need of 30 liters oxygen. RN called report no further needs.
--- NOTE | 2018-11-14 20:49 | D ---
[facility] [place] [address] DISCHARGE SUMMARY Name: CLARISSA MARTINEZ Jackelyn Room #: 209-P [facility] IN M.R.#: [id number] Admission: 10/30/18 ������������������ Attend Phys: Kody Amado MD Discharge: 11/14/18 ������������������ Date of : 42 Report #: [id number] THIS REPORT FOR: //name// CC: [facility]ice House Mickey Heath MD DATE OF SERVICE: 11/14/2018 HOSPITAL COURSE: The patient was admitted with respiratory distress in the setting of chronic pulmonary fibrosis which is idiopathic, and a left lower lobe infiltrate versus mass on chest x-ray. He was treated aggressively with intravenous antibiotics for a full 10-day course, as well as high doses of intravenous steroids, and aggressive pulmonary toilet. He required significantly large steroid and supplemental oxygen dose to just a point of needing to be on high flow nasal system with 65% oxygen to maintain saturations in the 90%-92% range. Unfortunately, even after his antibiotics treatment course, his pulmonary function did not really much improve. Extensive discussions were held with the patient with regards to end of life planning. Eventually, his choice was to go to the hospice house because his supplemental oxygen needs exceeded what the home health agencies and durable medical equipment companies are able to provide. He was switched over to 100% face shield and nasal cannula combination the night before his discharge and was started on doses of morphine for air hunger and chest pain, and Ativan for anxiety. He tolerated these well and did get significant benefit from them. At the time of discharge his diagnoses are: 1. End-stage idiopathic pulmonary fibrosis with jehhv-ii-dlvoieh respiratory failure. 2. Left lower lobe pneumonia. 3. Panic attacks. 4. Noncardiac chest pain. 5. Coronary artery disease. 6. History of pulmonary emboli in the past. 7. Hypertension. 8. Hyperlipidemia. 9. Gastroesophageal reflux disease. 10. Chronic obstructive pulmonary disease. 11. Cor pulmonale. 12. Benign prostatic hypertrophy. 13. Depression. [address] [address] DISCHARGE SUMMARY Name: CLARISSA MARTINEZ Room #: 209-P [facility] IN ..#: [id number] Admission: 10/30/18 ������������������ Attend Phys: Kody Amado MD Discharge: 11/14/18 ������������������ Date of : 41 Report #: [id number] DISCHARGE MEDICATIONS: 1. DuoNeb q.4 hours while awake, 3 mL per nebulizer and DuoNeb q. hour 3 mL per nebulizer p.r.n. shortness of breath. 2. Flomax 0.4 mg nightly. 3. Furosemide 40 mg by mouth twice daily. 4. Guaifenesin ER 600 mg by mouth twice daily. 5. Lorazepam 1-2 mg hourly p.r.n. agitation. 6. Prednisone 20 mg by mouth twice daily. 7. Metoprolol XL 100 mg by mouth daily. 8. Mirtazapine 30 mg by mouth nightly. 9. Morphine sulfate 4 mg per mL, 1-10 mg IV or sublingual hourly p.r.n. chest pain or air hunger. 10. Potassium chloride 20 mEq by mouth daily. 11. Warfarin 3 mg by mouth daily at 6:00 p.m. The patient is being discharged to hospice house. ��������������������������������������������� <ELECTRONICALLY SIGNED> ���������������������������������������� By: Kody Amado MD ��������������������������������������������� 11/14/18 2049 [id number] Kody Amado MD /nt
== END 2018-11-14 14:10 | disposition hospice, inpatient (51) | DRG 193 ==
LOC: EROBS 14:20 → 2N 14:20 → PUL 15:29 → 2N 17:07
PROVIDERS: Emergency Medicine; Internal Medicine; Internal Medicine Cardiovascular Disease; Internal Medicine Infectious Disease; Nurse Practitioner Adult Health; Pediatrics; ADMIT Internal Medicine
DX: J18.1 Lobar pneumonia, unspecified organism (principal); J96.21 Acute and chronic respiratory failure with hypoxia; I42.0 Dilated cardiomyopathy; I50.32 Chronic diastolic (congestive) heart failure; N17.9 Acute kidney failure, unspecified; I13.0 Hypertensive heart and chronic kidney disease with heart failure and stage 1 through stage 4 chronic kidney disease, or unspecified chronic kidney disease; I47.2 Ventricular tachycardia; Z51.5 Encounter for palliative care; J43.9 Emphysema, unspecified; I25.10 Atherosclerotic heart disease of native coronary artery without angina pectoris; E78.00 Pure hypercholesterolemia, unspecified; M19.90 Unspecified osteoarthritis, unspecified site; F32.9 Major depressive disorder, single episode, unspecified; R73.9 Hyperglycemia, unspecified; I48.2 Chronic atrial fibrillation; F41.0 Panic disorder [episodic paroxysmal anxiety]; R07.89 Other chest pain; E78.5 Hyperlipidemia, unspecified; K21.9 Gastro-esophageal reflux disease without esophagitis; N40.0 Benign prostatic hyperplasia without lower urinary tract symptoms; N18.9 Chronic kidney disease, unspecified; D75.1 Secondary polycythemia; G47.00 Insomnia, unspecified; I27.23 Pulmonary hypertension due to lung diseases and hypoxia; E66.9 Obesity, unspecified; J84.112 Idiopathic pulmonary fibrosis; Z86.711 Personal history of pulmonary embolism; Z87.891 Personal history of nicotine dependence; Z68.32 Body mass index [BMI] 32.0-32.9, adult; Z95.5 Presence of coronary angioplasty implant and graft; Z90.49 Acquired absence of other specified parts of digestive tract; Z86.73 Personal history of transient ischemic attack (TIA), and cerebral infarction without residual deficits; Z79.01 Long term (current) use of anticoagulants; Z79.899 Other long term (current) drug therapy; Z88.0 Allergy status to penicillin; Z88.8 Allergy status to other drugs, medicaments and biological substances; Z82.49 Family history of ischemic heart disease and other diseases of the circulatory system; Z83.3 Family history of diabetes mellitus
CPT/HCPCS: 10081; 10194; 10797